=== PATIENT | female | born 1960 | race Hispanic/Latino ===

== ENCOUNTER → 2022-11-28 | Outpatient (CLI) | payer BC | END | disposition home or self-care (01) | LOC: LAB 15:31 | PROVIDERS: ATTEND Student in an Organized Health Care Education/Training Program | DX: D68.51 Activated protein C resistance (principal) | CPT/HCPCS: 36415; 81241 ==

== ENCOUNTER → 2022-12-30 | Outpatient (CLI) | payer BC ==
[2022-12-30 15:33] LABS: PLATELET FUNCTION ANALYSIS EPI 156 SEC (55-192)
[2022-12-30 15:40] LABS: PLATELET COUNT (AUTO) 317 K/uL (130-400)
[2022-12-30 15:41] LABS: HEMATOCRIT 40.8 % (36-48); PFA INTERPRETATION PFA INTERPRETATION
== END | disposition home or self-care (01) ==
LOC: LAB 14:44
PROVIDERS: ATTEND Orthopaedic Surgery
DX: D68.51 Activated protein C resistance (principal)
CPT/HCPCS: 36415; 85576